=== PATIENT | female | born 1945 | race Two or more races ===

== ENCOUNTER 2017-07-01 05:31 | Inpatient (IN) | payer BC, MEDICARE ==
[~2017-07-01] VITALS: Ht 170.2 cm; Wt 104.3 kg
--- NOTE | 2017-07-01 05:47 | NUR ---
PT TO ER BED 9. BIB RA 79 FROM HOME C/O SOB/FEVER/DIARRHEA SINCE LAST NIGHT. VSS/NAD NOTED/AOX4. MD AT BEDSIDE FOR EVAL.
[2017-07-01] MEDS ORDERED: ONDANSETRON HCL/PF 4 MG/2 ML VIAL ONE (05:48)
--- NOTE | 2017-07-01 05:48 | NUR ---
LAB AT BEDSIDE FRO DRAW.
[2017-07-01] MEDS ORDERED: ACETAMINOPHEN ES 500 MG TABLET ONE (05:49)
--- NOTE | 2017-07-01 05:55 | NUR ---
RAPID FLU SWAB OBTAINED AND SENT TO THE LAB.
[2017-07-01] MEDS ORDERED: ACETAMINOPHEN 325 MG TABLET PO ONE (06:00)
[2017-07-01] MEDS ORDERED: IV NS 0.9% 1,000 ML BAG IV ONE (06:00)
[2017-07-01] MEDS ORDERED: ONDANSETRON HCL/PF 4 MG/2 ML VIAL IV ONE (06:00)
--- NOTE | 2017-07-01 06:00 | NUR ---
URINE SPECIMEN OBTAINED AND SENT TO THE LAB.
[2017-07-01 06:06] LABS: EOSINOPHILS % (AUTO) 0.4 % (0.0-6.0); HEMATOCRIT 35 % (33-45); HEMOGLOBIN 11.6 g/dL (11.5-14.8); LYMPHOCYTES # (AUTO) 1.2 /CMM (0.8-4.8); LYMPHOCYTES % (AUTO) 8.4 % (20.0-44.0); MEAN CORPUSCULAR HGB CONC 34 g/dl (31.0-36.0); MEAN CORPUSCULAR VOLUME 85 fL (82-100); MONOCYTES # (AUTO) 1.1 /CMM (0.1-1.30); MONOCYTES % (AUTO) 7.8 % (2.0-12.0); NEUTROPHILS # (AUTO) 12.2 /CMM (1.8-8.9); NEUTROPHILS % (AUTO) 83.4 % (43.0-81.0); PLATELET COUNT (AUTO) 277 /CMM (150-450); RDW COEFFICIENT OF VARIATION 13.4 (11.5-15.0); RED BLOOD CELL COUNT(AUTO) 4.05 MIL/uL (4.0-5.2); WHITE BLOOD COUNT (AUTO) 14.7 K/uL (4.3-11.0)
--- NOTE | 2017-07-01 06:10 | NUR ---
XRAY AT THE BEDSIDE.
[2017-07-01 06:12] LABS: APPEARANCE,URINE CLEAR (CLEAR); BILIRUBIN,URINE NEGATIVE (NEGATIVE); BLOOD, URINE 1+ Ery/uL (NEGATIVE); COLOR,URINE YELLOW (YELLOW); KETONES,URINE NEGATIVE (NEGATIVE); LEUKOCYTE ESTERASE ,URINE NEGATIVE (NEGATIVE); NITRITE, URINE NEGATIVE (NEGATIVE); PH,URINE 5.5 (5.0-8.0); PROTEIN,URINE TRACE mg/dl (NEGATIVE); UGLUCOSE NEGATIVE (NEGATIVE); UROBILINOGEN,URINE 0.2 EU/dL (0.2)
[2017-07-01 06:20] LABS: INR 0.97 (0.87-1.13)
[2017-07-01 06:23] LABS: ALANINE AMINOTRANSFERASE 29 U/L (12-78); ALBUMIN 3.7 g/dL (3.4-5.0); ALKALINE PHOSPHATASE 61 U/L (46-116); ASPARTATE AMINOTRANSFERASE 20 U/L (15-37); BILIRUBIN,DIRECT 0.1 mg/dL (0.0-0.2); BILIRUBIN,TOTAL 0.5 mg/dL (0.2-1.0); CALCIUM, SERUM 9.2 mg/dL (8.5-10.1); CARBON DIOXIDE 30 mmol/L (21-32); CHLORIDE 104 mmol/L (98-107); GLUCOSE 156 mg/dL (74-106); POTASSIUM 3.4 mmol/L (3.5-5.1); SODIUM SERUM 142 mmol/L (136-145); TOTAL PROTEIN, SERUM 7.6 g/dL (6.4-8.2); UREA NITROGEN, BLOOD 26 mg/dL (7-18)
[2017-07-01 06:24] LABS: TROPONIN I < 0.017 ng/mL (0.00-0.056)
[2017-07-01 06:31] LABS: BACTERIA,URINE Few /HPF (None Seen); WBC,URINE NONE SEEN /HPF (0-3)
[2017-07-01 06:32] LABS: SQUAMOUS EPITHELIAL CELL,UR Rare /HPF (None Seen)
--- NOTE | 2017-07-01 08:41 | NUR ---
CALLED [facility] FOR ADMISSION
--- NOTE | 2017-07-01 08:57 | NUR ---
[address] PAGE TO DR. LONG FOR ADMISSION
[2017-07-01] MEDS ORDERED: SUCR1TAB31 PO (09:29)
[2017-07-01] MEDS ORDERED: CLOP75TA15 PO (09:29)
[2017-07-01] MEDS ORDERED: CARV6.252 PO (09:29)
[2017-07-01] MEDS ORDERED: ATOR40TA PO (09:29)
[2017-07-01] MEDS ORDERED: OLME40TA12 PO (09:29)
[2017-07-01] MEDS ORDERED: EZET10TA14 PO (09:29)
[2017-07-01] MEDS ORDERED: NIFE30TA2 PO (09:29)
[2017-07-01] MEDS ORDERED: ZOLPIDEM TARTRATE 5 MG TABLET PO PRN (10:00)
[2017-07-01] MEDS ORDERED: MAGNESIUM HYDROXIDE 30 ML UDC PO PRN (10:00)
[2017-07-01] MEDS ORDERED: MAG HYDROX/AL HYDROX/SIMETH 30 ML UDC PO PRN (10:00)
[2017-07-01] MEDS ORDERED: ONDANSETRON HCL/PF 4 MG/2 ML VIAL IVP PRN (10:00)
[2017-07-01] MEDS ORDERED: Z GUARD REMEDY 2 OZ OINT TP PRN (10:00)
[2017-07-01] MEDS ORDERED: HYDROCODONE/APAP 5/325MG 1 EACH TABLET PO PRN (10:00)
[2017-07-01] MEDS ORDERED: ACETAMINOPHEN 325 MG TABLET PO PRN (10:00)
--- NOTE | 2017-07-01 10:00 | NUR ---
REPORT GIVEN TO GRETA FOR CONTINUITY OF CARE IN TELEMETRY
--- NOTE | 2017-07-01 12:39 | NUR ---
PATIENT AMBULATES TO THE RESTROOM WITH STEADY GAIT.
--- NOTE | 2017-07-01 13:04 | NUR ---
ATTEMPTED TO CONTACT THE INSURANCE FOR TRANSFER WITH NO RESPONSE, ADMIT PATIENT TO MS FLOOR TO PREVENT FURTHER DELAY. DR GARZA IS MADE AWARE.
--- NOTE | 2017-07-01 13:55 | NUR ---
WHEAT WASHER NOTES RECEIVED PATIENT IN STABLE CONDITION FROM ER VIA [facility]. NO ACUTE DISTRESS, NO SOB NOTED. DENIED PAIN OR DISCOMFORT. IV SITE INTACT AND PATENT. ONE EPISODE OF DIARRHEA IN ER PER REPORT, WILL COLLECT SPECIMEN . NO FEVER. PATIENT IS ALERT AND ORIENTED X3, FAMILY ON BEDSIDE. ON TELE MONIOTR, SR 76. PATIENT TOLERATED ROOM AIR, SPO2 96%. KEPT PATIENT SAFE AND COMFORTABLE. BED IN LOW/LOCKED POSITION, SIDERAILS UPX2, CALL LIGHT IN REACH. WILL CONTINUE TO MONITOR ACCORDINGLY.
[2017-07-01 14:00] VITALS: BP 128/60
[2017-07-01 16:00] VITALS: BP 132/65
[2017-07-01] MEDS: SUCRALFATE 1 G TABLET PO SCH (16:25)
[2017-07-01] MEDS: CARVEDILOL 6.25 MG TABLET PO SCH (16:26)
--- NOTE | 2017-07-01 19:19 | NUR ---
RN CLOSING NOTES PATIENT IN STABLE CONDITION. ALL NEEDS ATTENDED AND PROVIDED. KEPT PATIENT SAFE AND COMFORTABLE. BED IN LOW/LOCKED POSITION, CALL LIGHT IN REACH. ENDORSED TO NIGHT RN FOR SUSANA.
--- NOTE | 2017-07-01 19:30 | NUR ---
DELINEATOR OPENING NOTES RECEIVED PT IN BED ALERT, AWAKE, VERBALLY RESPONSIVE, ON ROOM AIR, RESPIRATIONS EVEN, UNLABORED, NO APPARENT DISTRESS NOTED. DENIES ANY PAIN OR DISCOMFORT AT THIS TIME. CALL LIGHT WITHIN REACH. IV SITE LT HAND INTACT, PATENT. BED LOCKED IN LOWEST POSITION. ATTENDED ALL NEEDS. WILL CONTINUE TO MONITOR ACCORDINGLY..
[2017-07-01 20:00] VITALS: BP 114/54
[2017-07-01 20:03] VITALS: BP 114/54
[2017-07-01 22:00] VITALS: BP 114/60
[2017-07-01] MEDS: ATORVASTATIN 40 MG TABLET PO SCH (22:49)
[2017-07-02] VITALS: BP_SYST 136; BP_SYST 139; BP_DIAS 77
[2017-07-02 04:00] VITALS: BP 123/55
--- NOTE | 2017-07-02 06:34 | NUR ---
SEGMENT PRODUCER CLOSING NOTES PT IN BED , RESTING COMFORTABLY, ON ROOM AIR, NO APPARENT DISTRESS NOTED. IV SITE INTACT, PATENT.NSR 73. KEPT CLEAN AND COMFORTABLE, ATTENDED ALL NEED. WILL ENDORSE TO DAY SHIFT FOR CONTINUITY OF CARE
[2017-07-02 06:35] LABS: BASOPHILS % (AUTO) 0.4 % (0.0-2.0); EOSINOPHILS % (AUTO) 2.2 % (0.0-6.0); HEMATOCRIT 30 % (33-45); HEMOGLOBIN 9.9 g/dL (11.5-14.8); LYMPHOCYTES # (AUTO) 1.4 /CMM (0.8-4.8); LYMPHOCYTES % (AUTO) 20.6 % (20.0-44.0); MEAN CORPUSCULAR HGB CONC 34 g/dl (31.0-36.0); MEAN CORPUSCULAR VOLUME 86 fL (82-100); MONOCYTES # (AUTO) 0.8 /CMM (0.1-1.30); MONOCYTES % (AUTO) 10.9 % (2.0-12.0); NEUTROPHILS # (AUTO) 4.6 /CMM (1.8-8.9); NEUTROPHILS % (AUTO) 65.9 % (43.0-81.0); PLATELET COUNT (AUTO) 213 /CMM (150-450); RDW COEFFICIENT OF VARIATION 13.6 (11.5-15.0); RED BLOOD CELL COUNT(AUTO) 3.44 MIL/uL (4.0-5.2)
[2017-07-02 06:53] LABS: CALCIUM, SERUM 8.5 mg/dL (8.5-10.1); CREATININE 0.9 mg/dL (0.6-1.3); MAGNESIUM 1.6 mg/dL (1.8-2.4); PHOSPHORUS 3.2 mg/dL (2.5-4.9)
--- NOTE | 2017-07-02 07:25 | NUR ---
Tele/RN - Assessment Patient in bed resting comfortably, A/O x 4, denies pain, tolerating room air, tele shows SR, remain afebrile, not in any form of distress. Saline lock on the left hand is patent, intact, with no signs of infiltration. Skin is intact, patient independent with bed mobility. Son at bedside updated on treatment plan. Will continue to monitor closely.
[2017-07-02 08:00] VITALS: BP 145/63
[2017-07-02] MEDS: NIFEdipine XL (30MG) 30 MG TAB PO SCH (08:13)
[2017-07-02] MEDS: EZETIMIBE 10 MG TABLET PO SCH (08:13)
[2017-07-02] MEDS: SUCRALFATE 1 G TABLET PO SCH ×2 (08:13→16:51)
[2017-07-02] MEDS: CLOPIDOGREL BISULFATE 75 MG TABLET PO SCH (08:13)
[2017-07-02] MEDS: CARVEDILOL 6.25 MG TABLET PO SCH ×2 (08:14→16:51)
[2017-07-02] MEDS: Magnesium 1GM/D5W 100ML PREMIX 100 ML IV SCH ×2 (10:16→11:21)
[2017-07-02] MEDS: POTASSIUM CHLORIDE 20 MEQ TAB.PRT.SR PO SCH ×3 (10:16→12:29)
[2017-07-02 16:00] VITALS: BP 118/57
--- NOTE | 2017-07-02 18:30 | NUR ---
M/S RN - Notes Patient states she feels better, remain afebrile, denies pain, not in any form of distress. Potassium and Magnesium repleted. Patient and family at bedside updated on plan of care. Anticipate discharge home tomorrow if she continues to be stable. Will continue with current medical management.
--- NOTE | 2017-07-02 19:30 | NUR ---
MS RN OPENING NOTES RECEIVED PT IN BED ALERT, AWAKE, VERBALLY RESPONSIVE, ON ROOM AIR, RESPIRATIONS EVEN, UNLABORED, NO APPARENT DISTRESS NOTED. IV SITE LT HAND INTACT, PATENT.DENIES ANY PAIN OR DISCOMFORT AT THIS TIME. CALL LIGHT WITHIN REACH.BED LOCKED IN LOWEST POSITION. ATTENDED ALL NEEDS. WILL CONTINUE TO MONITOR ACCORDINGLY.
[2017-07-02 20:00] VITALS: BP 117/58
[2017-07-02] MEDS: ATORVASTATIN 40 MG TABLET PO SCH (21:22)
[2017-07-02 22:04] VITALS: BP 117/58
--- NOTE | 2017-07-03 06:17 | NUR ---
MS RN CLOSING NOTES PT IN BED RESTING COMFORTABLY, ON ROOM AIR, RESPIRATION KEL, UNLABORED, NO APPARENT DISTRESS NOTED. KEPT CLEAN AND COMFORTABLE, ATTENDED ALL NEEDS. WILL ENDORSE TO DAYSHIFT FOR CONTINUITY OF CARE
--- NOTE | 2017-07-03 07:00 | NUR ---
REPORT RECEIVED AT THE BEDSIDE. PATIENT IS RESTING COMFORTABLY IN BED. NO SOB OR DISTRESS NOTED AT THIS TIME. PATIENT DENIES PAIN. BED IN A LOW POSITION, CALL LIGHT WITHIN PATIENT REACH. WILL MONITOR.
[2017-07-03 07:24] LABS: EOSINOPHILS % (AUTO) 2.5 % (0.0-6.0); HEMATOCRIT 29 % (33-45); HEMOGLOBIN 9.7 g/dL (11.5-14.8); LYMPHOCYTES # (AUTO) 1.6 /CMM (0.8-4.8); LYMPHOCYTES % (AUTO) 21.8 % (20.0-44.0); MEAN CORPUSCULAR HGB CONC 33 g/dl (31.0-36.0); MEAN CORPUSCULAR VOLUME 86 fL (82-100); MONOCYTES # (AUTO) 0.7 /CMM (0.1-1.30); MONOCYTES % (AUTO) 9.4 % (2.0-12.0); NEUTROPHILS # (AUTO) 4.9 /CMM (1.8-8.9); NEUTROPHILS % (AUTO) 66.3 % (43.0-81.0); PLATELET COUNT (AUTO) 206 /CMM (150-450); RDW COEFFICIENT OF VARIATION 14.2 (11.5-15.0); RED BLOOD CELL COUNT(AUTO) 3.38 MIL/uL (4.0-5.2); WHITE BLOOD COUNT (AUTO) 7.4 K/uL (4.3-11.0)
[2017-07-03 07:43] LABS: THYROID STIMULATING HORMONE 3.056 uIU/mL (0.358-3.74)
[2017-07-03 08:00] VITALS: BP 150/70
[2017-07-03 08:10] LABS: CALCIUM, SERUM 8.3 mg/dL (8.5-10.1); CREATININE 0.8 mg/dL (0.6-1.3); MAGNESIUM 1.8 mg/dL (1.8-2.4); PHOSPHORUS 2.4 mg/dL (2.5-4.9); POTASSIUM 3.4 mmol/L (3.5-5.1)
[2017-07-03] MEDS: CLOPIDOGREL BISULFATE 75 MG TABLET PO SCH (08:24)
[2017-07-03] MEDS: EZETIMIBE 10 MG TABLET PO SCH (08:24)
[2017-07-03] MEDS: NIFEdipine XL (30MG) 30 MG TAB PO SCH (08:24)
[2017-07-03 08:25] VITALS: BP 150/70
[2017-07-03] MEDS: SUCRALFATE 1 G TABLET PO SCH (08:25)
[2017-07-03] MEDS: CARVEDILOL 6.25 MG TABLET PO SCH (08:25)
[2017-07-03] MEDS ORDERED: LEVO500T75 PO (10:30)
[2017-07-03] MEDS ORDERED: FERR325T23 PO (10:30)
[2017-07-03] MEDS ORDERED: ONDA4TAB8 SL (10:30)
--- NOTE | 2017-07-03 10:31 | NUR ---
CALLED PHARMACY AND SPOKE TO MARTHA. INFORMED HER THAT DR LONG ORDERED A STAT FERLICET TO BE GIVEN TO THE PATIENT BECAUSE SHE WANTS HER TO BE DISCHARGED AFTER. MARTHA STATES THAT SHE WILL HAVE IT PREPARED.
[2017-07-03] MEDS ORDERED: POTASSIUM CHLORIDE 20 MEQ TAB.PRT.SR PO ONE (11:00)
[2017-07-03] MEDS ORDERED: SOD FERRIC GLUC 125 MG in IV NS 0.9% 100 ML IV STA (11:00)
--- NOTE | 2017-07-03 11:30 | NUR ---
MS RN NOTES RECEIVED REPORT FROM MARTY ZAZUETA FOR SUSANA. PATIENT RECEIVED RESTING INSIDE ROOM, ACCOMPANIED BY RASHIDA (DTR). PATIENT BREATHING EVEN AND UNLABORED. NO SOB OR ACUTE DISTRESS NOTED. DENIES ANY PAIN OR DISCOMFORT NOTED. PATIENT FOR DISCHARGE HOME TODAY. FERRLECIT IV CONNECTED, TO FINISH PRIOR TO DISCHARGE HOME TODAY. IV SITE INTACT AND PATENT, NO BLEEDING OR SWELLING NOTED. WILL CONTINUE TO MONITOR
--- NOTE | 2017-07-03 13:43 | NUR ---
MS RN NOTES PATIENT FOR DISCHARGE HOME TODAY. FERRLECIT IV DONE. DISCHARGE INSTRUCTIONS AND EDUCATION PROVIDED TO PATIENT AND DAUGHTER AND BOTH PARTIES VERBALIZED UNDERSTANDING. MEDICATION PRESCRIPTIONS PROVIDED TO PATIENT. ALL BELONGINGS COMPLETE UPON DISCHARGE, NO REPORT OF MISSING INVENTORY. NO NEW SKIN BREAKDOWN NOTED. IV REMOVED WITH MINIMAL BLEEDING NOTED, PRESSURE DRESSING PLACED. PATIENT AND DAUGHTERRASHIDA ACCOMPANIED OUTSIDE HOSPITAL TOWARDS PARKING LOT. NO EPISODE OF FALL OR INJURY DURING DISCHARGE. PATIENT LEFT AT 1330 VIA PRIVATE CAR. MD AWARE OF DISCHARGE.
== END 2017-07-03 13:30 | disposition home or self-care (01) | DRG 720 ==
LOC: ER 05:32 → TELE 13:31 → MED 07-02 11:19
PROVIDERS: ADMIT Internal Medicine; ATTEND Internal Medicine
DX: A41.9 Sepsis, unspecified organism (principal); N39.0 Urinary tract infection, site not specified; E11.9 Type 2 diabetes mellitus without complications; E83.42 Hypomagnesemia; I10 Essential (primary) hypertension; B96.20 Unspecified Escherichia coli [E. coli] as the cause of diseases classified elsewhere; J45.909 Unspecified asthma, uncomplicated; M19.90 Unspecified osteoarthritis, unspecified site; Z86.73 Personal history of transient ischemic attack (TIA), and cerebral infarction without residual deficits; E87.6 Hypokalemia; E66.9 Obesity, unspecified; E78.5 Hyperlipidemia, unspecified; I25.10 Atherosclerotic heart disease of native coronary artery without angina pectoris; K21.9 Gastro-esophageal reflux disease without esophagitis; E61.1 Iron deficiency; A08.4 Viral intestinal infection, unspecified
CPT/HCPCS: 36415; 71045-TC; 80048-TC; 80061-TC; 80076-TC; 81000-TC; 82746; 83540-TC; 83605-TC; 83735-TC; 84100-TC; 84443-TC; 84484-TC; 85025-TC; 85378-TC; 85730-TC; 87040-TC; 87081-TC; 87086-TC; 87186-TC; 87400; 93307-TC; A4606; J2405; J2916; J3475; J7030; J7040; J7050; Z7610

== ENCOUNTER 2017-12-05 14:20 | Emergency (ER) | payer MEDICARE, BC ==
[~2017-12-05] VITALS: Ht 172.7 cm; Wt 102.5 kg
[~2017-12-05 14:20] MED LIST: ATOR40TA PO; CARV6.252 PO; CLOP75TA15 PO; EZET10TA14 PO; FERR325T23 PO; LEVO500T75 PO; NIFE30TA2 PO; OLME40TA12 PO; ONDA4TAB8 SL; SUCR1TAB31 PO
--- NOTE | 2017-12-05 14:25 | NUR ---
PT CAME IN WITH C/O RECTAL BLEEDING X 3 DAYS AND DARK BLACK STOOLS. DENIES TRAUMA. SEEN BY MD FOR EVAL. VSS. SAFETY AND COMFORT MEASURES PROVIDED. WILL MONITOR.
[2017-12-05] MEDS: IV NS 0.9% 1,000 ML BAG IV ONE (14:58)
[2017-12-05 15:00] LABS: BASOPHILS % (AUTO) 0.4 % (0.0-2.0); EOSINOPHILS % (AUTO) 2.7 % (0.0-6.0); HEMATOCRIT 27 % (33-45); HEMOGLOBIN 8.9 g/dL (11.5-14.8); LYMPHOCYTES # (AUTO) 2.1 /CMM (0.8-4.8); LYMPHOCYTES % (AUTO) 21.9 % (20.0-44.0); MEAN CORPUSCULAR HGB CONC 32 g/dl (31.0-36.0); MEAN CORPUSCULAR VOLUME 81 fL (82-100); MONOCYTES # (AUTO) 0.6 /CMM (0.1-1.30); MONOCYTES % (AUTO) 5.7 % (2.0-12.0); NEUTROPHILS # (AUTO) 6.7 /CMM (1.8-8.9); NEUTROPHILS % (AUTO) 69.3 % (43.0-81.0); PLATELET COUNT (AUTO) 324 /CMM (150-450); RED BLOOD CELL COUNT(AUTO) 3.38 MIL/uL (4.0-5.2); WHITE BLOOD COUNT (AUTO) 9.7 K/uL (4.3-11.0)
--- NOTE | 2017-12-05 15:02 | NUR ---
IV ACCESS STARTED. BLOOD DRAWN. MEDICATED ORDERED.
[2017-12-05 16:01] LABS: OCCULT BLOOD STOOL POSITIVE (NEGATIVE)
[2017-12-05 16:54] LABS: ALBUMIN 3.2 g/dL (3.4-5.0); BILIRUBIN,DIRECT 0.1 mg/dL (0.0-0.2); BILIRUBIN,TOTAL 0.4 mg/dL (0.2-1.0); TOTAL PROTEIN, SERUM 6.4 g/dL (6.4-8.2)
[2017-12-05 17:06] LABS: INR 0.96 (0.87-1.13)
[2017-12-05 17:15] LABS: CALCIUM, SERUM 8.8 mg/dL (8.5-10.1); CARBON DIOXIDE 31 mmol/L (21-32); CHLORIDE 107 mmol/L (98-107); GLUCOSE 111 mg/dL (74-106); POTASSIUM 4.8 mmol/L (3.5-5.1); SODIUM SERUM 143 mmol/L (136-145); UREA NITROGEN, BLOOD 27 mg/dL (7-18)
--- NOTE | 2017-12-05 17:48 | NUR ---
AT TO DISCUSS POC.
[2017-12-05] MEDS ORDERED: PANTOPRAZOLE 40 MG VIAL ONE (18:05)
[2017-12-05] MEDS ORDERED: OMEP20CA10 PO (18:12)
[2017-12-05] MEDS: PANTOPRAZOLE 40 MG VIAL IV ONE (18:40)
--- NOTE | 2017-12-05 20:09 | NUR ---
DR. DOBSON SPEAKING TO DR. PAYNE (PCP) [phone]; REGARDING ADMISSION. CLINICALS FAXED TP [phone]
--- NOTE | 2017-12-05 21:04 | NUR ---
[facility] CALLED WITH TX INFORMATION DR MCCARTHY WILL ACCEPT THE PATIENT PATIENT WILL BE GOING TO ROOM [facility]
--- NOTE | 2017-12-05 21:11 | NUR ---
CALLED [facility] FOR TRANSPORT ETA OF [phone] WAS GIVEN. TRIP#[id number]
--- NOTE | 2017-12-05 21:48 | NUR ---
GAVE REPORT TO FRANCISCO FOR SUSANA
--- NOTE | 2017-12-05 21:48 | NUR ---
GAVE REPORT TO NURSE LIN AT [facility] FOR SUSANA
[2017-12-05 21:50] VITALS: BP 149/80
== END 2017-12-05 21:55 | disposition short-term general hospital (02) ==
LOC: ER 14:26
DX: K92.2 Gastrointestinal hemorrhage, unspecified (principal); D64.9 Anemia, unspecified; K92.1 Melena; K64.9 Unspecified hemorrhoids; I10 Essential (primary) hypertension; E78.5 Hyperlipidemia, unspecified; J45.909 Unspecified asthma, uncomplicated; R79.89 Other specified abnormal findings of blood chemistry; Z88.0 Allergy status to penicillin; Z86.73 Personal history of transient ischemic attack (TIA), and cerebral infarction without residual deficits; Z79.899 Other long term (current) drug therapy
CPT/HCPCS: 36415; 71045; 80048; 80076; 82272; 83690; 85025; 85730; 86850; 93005; 96374; 99285; A4606; C9113; J7030; Z7610